=== PATIENT | female | born 1990 | race Caucasian/White ===

== ENCOUNTER 2018-10-09 20:16 | Emergency (ER) | payer SELFPAY ==
[2018-10-09] MEDS ORDERED: traMADol 50 MG Tab PO ONE (20:17)
[2018-10-09 20:28] VITALS: BP 120/76
--- NOTE | 2018-10-09 20:48 | EDM.PDOC ---
ED HPI GENERAL MEDICAL PROBLEM - General Chief Complaint: General Stated Complaint: TOOTH ABCESS Time Seen by Provider: 10/09/18 20:16 Source of Information: Reports: Patient History Limitations: Reports: No Limitations - History of Present Illness INITIAL COMMENTS - FREE TEXT/NARRATIVE: 28 y.o.w.f - smoker- came to the ed because her left face is swollen. Pt has tooth as well. Pt could not find a dentist because of insurance reasons. Pt has tooth ache on Tooth # 12. No trauma. No F/C no N/V or any other acute medical issue. 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 L upper jaw Pain Score (Numeric/FACES): 7 - Related Data Allergies Allergy/AdvReac Type Severity Reaction Status Date / Time No Known Allergies Allergy Verified 10/09/18 20:24 Home Meds: Home Meds Amoxicillin/Potassium Clav [Augmentin 875-125 Tablet] 1 each PO BID #20 tablet 10/09/18 [Rx] Past Medical History - Past Health History Medical/Surgical History: Denies Medical/Surgical History 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: Other OUTREACH CLINICIAN History: [id number] Musculoskeletal History: Reports: Other (See Below) Other Musculoskeletal History: chronic L shoulder pain Psychiatric History: Reports: Anxiety, Depression, Panic Attack - Infectious Disease History Infectious Disease History: Reports: Chicken Pox - Past Surgical History HEENT Surgical History: Reports: Oral Surgery Social & Family History - Family History Family Medical History: Noncontributory - Tobacco Use Smoking Status *Q: Current Every Day Smoker Years of Tobacco use: 10 Packs/Tins Daily: 0.5 - Caffeine Use Caffeine Use: Reports: Coffee, Soda, Tea - Recreational Drug Use Recreational Drug Use: No - Living Situation & Occupation Living situation: Reports: Occupation: Other ED ROS GENERAL - Review of Systems Review Of Systems: See Below Constitutional: Reports: No Symptoms HEENT: Reports: Dental Pain Respiratory: Reports: No Symptoms Cardiovascular: Reports: No Symptoms Endocrine: Reports: No Symptoms GI/Abdominal: Reports: No Symptoms : Reports: No Symptoms Musculoskeletal: Reports: No Symptoms Skin: Reports: No Symptoms Neurological: Reports: No Symptoms Psychiatric: Reports: No Symptoms Hematologic/Lymphatic: Reports: No Symptoms Immunologic: Reports: No Symptoms ED EXAM, GENERAL - Physical Exam Exam: See Below Exam Limited By: No Limitations General Appearance: Alert, WD/WN, Mild Distress Eye Exam: Bilateral Eye: Normal Inspection Ears: Normal External Exam Ear Exam: Bilateral Ear: Auricle Normal Nose: Normal Inspection Throat/Mouth: Normal Inspection, Normal Lips, Normal Voice, No Airway Compromise Head: Facial Swelling (left side of face) Neck: Normal Inspection, Supple, Non-Tender, Full Range of Motion Respiratory/Chest: No Respiratory Distress, Lungs Clear, Normal Breath Sounds, No Accessory Muscle Use, Chest Non-Tender Cardiovascular: Normal Peripheral Pulses, Regular Rate, Rhythm, No Edema, No Gallop, No JVD, No Murmur, No Rub Peripheral Pulses: 1+: Brachial (L) GI/Abdominal: Normal Bowel Sounds, Soft, Non-Tender, No Organomegaly (Female) Exam: Deferred Rectal (Female) Exam: Deferred Back Exam: Normal Inspection, Full Range of Motion Extremities: Normal Inspection, Normal Range of Motion, Non-Tender, No Pedal Edema Neurological: Alert, Oriented, CN II-XII Intact, Normal Cognition, Normal Gait, Normal Reflexes, No Motor/Sensory Deficits Psychiatric: Normal Affect, Normal Mood Skin Exam: Warm, Dry, Intact, Normal Color, No Rash Lymphatic: No Adenopathy Course - Vital Signs Text/Narrative:: 28 y.o.w.f - smoker- came to the ed because her left face is swollen. Pt has tooth as well. Pt could not find a dentist because of insurance reasons. Pt has tooth ache on Tooth # 12. No trauma. No F/C no N/V or any other acute medical issue. BP 120/76 RR 18 Pulse ox 99% on RA pulse 109 Temp 36.8 PE: WNWD W F with toothache and left facial swelling Imaging: Refused Impression; Possible abscess tooth #12 Tx: Ultram/Abx to take home Reexam: Improved Plan: D/C with instructions Last Recorded V/S: Last Vital Signs Temp 36.4 C 10/09/18 20:20 Pulse 104 H 10/09/18 20:20 Resp 18 01/10/19 20:20 BP 120/76 10/09/18 20:20 Pulse Ox 100 10/09/18 20:20 - Orders/Labs/Meds Meds: Medications Discontinued Medications Generic Name Dose Route Start Last Admin Trade Name Kristal PRN Reason Stop Dose Admin Amoxicillin/Clavulanate Potassium 1 tab 10/09/18 20:49 10/09/18 20:53 Augmentin 875 Mg/125 Mg PO 10/09/18 20:50 1 tab ONETIME ONE Administration Departure - Departure Time of Disposition: 20:44 Disposition: Home, Self-Care 01 Condition: Good Clinical Impression: Tooth ache, Tooth abscess - Discharge Information Prescriptions: Amoxicillin/Potassium Clav [Augmentin 875-125 Tablet] 1 each PO BID #20 tablet Instructions: Amoxicillin; Clavulanic Acid tablets, Dental Abscess, Easy-to- Read, Tramadol tablets Referrals: PCP,None [Primary Care Provider] - Forms: ED Department Discharge Additional Instructions: Please take the Augmentin and pain meds as recommended, please follow up with your dentist a.s.a.p, come back if your symptoms get worse acutely. May continue to use Tylenol & Ibuprofen or Naprosyn for pain in addition to Tramadol.
[2018-10-09] MEDS ORDERED: Amoxicillin/Clavulanate K 875-125 MG Tab PO ONE (20:49)
== END 2018-10-09 20:55 | disposition home or self-care (01) ==
LOC: FB.ED 20:16
DX: K04.7 Periapical abscess without sinus (principal); F17.210 Nicotine dependence, cigarettes, uncomplicated
CPT/HCPCS: 99282; A9270; 99283